=== PATIENT | female | born 1985 | race African-American/Black ===

== ENCOUNTER 2017-10-12 22:03 | Emergency (ER) | payer MEDICAID ==
[~2017-10-12] VITALS: Ht 162.6 cm; Wt 65.0 kg
[2017-10-12 22:50] LABS: ALANINE AMINOTRANSFERASE 38 U/L (12-78); ALBUMIN 3.9 g/dL (3.4-5.0); ANION GAP 9 mmol/L (5-15); CALCIUM 8.8 mg/dL (8.5-10.1); CHLORIDE 108 mmol/L (98-107)
[2017-10-12 22:55] LABS: ALKALINE PHOSPHATASE 106 U/L (45-117); BILIRUBIN,TOTAL 0.4 mg/dL (0.2-1.0); TOTAL PROTEIN 8.3 g/dL (6.4-8.2); TROPONIN I < 0.015 ng/mL (0.000-0.045)
[2017-10-12 22:57] LABS: MD YES; MEAN CORPUSCULAR HEMOGLOBIN 24.9 pg (27.0-34.8); MEAN CORPUSCULAR HGB CONC 32.5 g/dL (32.4-35.8); MEAN CORPUSCULAR VOLUME 76.6 fL (80-100); MEAN PLATELET VOLUME 9.8 fL (7.4-10.4); PLATELET COUNT 226 x10^3/uL (130-400); RED BLOOD COUNT 4.96 x10^6/uL (3.82-5.3); RED CELL DISTRIBUTION WIDTH 16.2 % (9.6-15.2)
[2017-10-12 23:00] LABS: BASOS#(MANUAL) 0.04 x10^3/uL (0-0.1); BASOS% (MANUAL) 1 % (0-1); LYMPH#(MANUAL) 1.52 x10^3/uL (1-3.4); LYMPHS% (MANUAL) 38 % (22-44); METAMYELOCYTES# (MANUAL) 0.04 x10^3/uL (0-0); METAMYELOCYTES% (MANUAL) 1 % (0-1); MONOS#(MANUAL) 0.12 x10^3/uL (0.3-2.7); MONOS% (MANUAL) 3 % (2-9); SEG#(MANUAL) 2.28 x10^3/uL (1.8-6.8); SEGS% (MANUAL) 57 % (42-75); THYROID STIMULATING HORMONE 0.428 mIU/L (0.358-3.740)
[2017-10-12 23:01] LABS: ANISOCYTOSIS 1+; HYPOCHROMIA 1+; POLYCHROMASIA 1+
[2017-10-12 23:02] LABS: <PLATELET ESTIMATE> ADEQUATE; LARGE PLATELETS 1+
[2017-10-12 23:11] VITALS: BP 116/68
== END 2017-10-13 00:18 | disposition home or self-care (01) ==
LOC: ED 22:50
DX: R00.2 Palpitations (principal); F32.0 Major depressive disorder, single episode, mild; F17.200 Nicotine dependence, unspecified, uncomplicated; I48.91 Unspecified atrial fibrillation; I25.2 Old myocardial infarction
CPT/HCPCS: 36415; 71045; 80053; 84443; 84484; 84703; 85025; 93005; 99285

== ENCOUNTER 2017-10-13 01:36 | Emergency (ER) | payer MEDICAID ==
[~2017-10-13] VITALS: Ht 165.1 cm; Wt 88.6 kg
[2017-10-13 03:04] LABS: HCG UR SG 1.037 (1.003-1.030)
[2017-10-13 03:16] LABS: AMPHETAMINE SCREEN, URINE Negative (Negative); BARBITURATE SCREEN, URINE Negative (Negative); BENZODIAZEPINE SCREEN, URINE Negative (Negative); CANNABINOID SCREEN, URINE Positive (Negative); COCAINE SCREEN, URINE Negative (Negative); METHADONE SCREEN, URINE Negative (Negative); OPIATE SCREEN, URINE Negative (Negative)
[2017-10-13 03:27] LABS: SALICYLATE LEVEL 5.1 mg/dL (2.8-20.0)
[2017-10-13 03:32] LABS: ACETAMINOPHEN < 2 mcg/mL (10-30)
[2017-10-13 04:52] VITALS: BP 121/74
== END 2017-10-13 04:56 | disposition home or self-care (01) ==
LOC: ED 02:43
DX: F20.9 Schizophrenia, unspecified (principal); F32.9 Major depressive disorder, single episode, unspecified; Z79.899 Other long term (current) drug therapy
CPT/HCPCS: 36415; 80307; 80329; 81025; 99284; G0480

== ENCOUNTER 2017-10-19 21:19 | Observation (INO) | payer MEDICAID ==
[~2017-10-19] VITALS: Ht 165.1 cm; Wt 95.5 kg
[2017-10-19 22:00] LABS: BASOPHILS # (AUTO) 0.01 x10^3/uL (0-0.1); BASOPHILS % (AUTO) 0 % (0-1); EOSINOPHILS % (AUTO) 0 % (1-7); LYMPHOCYTES # (AUTO) 0.99 x10^3/uL (1-3.4); LYMPHOCYTES % (AUTO) 23 % (22-44); MD NO; MEAN CORPUSCULAR HGB CONC 33.4 g/dL (32.4-35.8); MEAN CORPUSCULAR VOLUME 74.9 fL (80-100); MEAN PLATELET VOLUME 10.4 fL (7.4-10.4); MONOCYTES # (AUTO) 0.52 x10^3/uL (0.2-0.8); MONOCYTES % (AUTO) 12 % (2-9); NEUTROPHILS # (AUTO) 2.86 x10^3/uL (1.8-6.8); NEUTROPHILS % (AUTO) 65 % (42-75); PLATELET COUNT 196 x10^3/uL (130-400); RED BLOOD COUNT 5.49 x10^6/uL (3.82-5.3); RED CELL DISTRIBUTION WIDTH 16.5 % (9.6-15.2)
[2017-10-19] MEDS ORDERED: ONDANSETRON ODT 4 MG PO ONE (22:00)
[2017-10-19] MEDS ORDERED: IBUPROFEN 200 MG TABLET PO ONE (22:00)
[2017-10-19] MEDS ORDERED: IBUPROFEN 200 MG TABLET ONE (22:03)
[2017-10-19] MEDS ORDERED: ONDANSETRON ODT 4 MG ONE (22:03)
[2017-10-19 22:11] LABS: ALANINE AMINOTRANSFERASE 45 U/L (12-78); ANION GAP 10 mmol/L (5-15); CALCIUM 8.8 mg/dL (8.5-10.1); CHLORIDE 105 mmol/L (98-107); CREATININE 1.16 mg/dL (0.55-1.02); SALICYLATE LEVEL 4.9 mg/dL (2.8-20.0)
[2017-10-19 22:16] LABS: ACETAMINOPHEN 15 mcg/mL (10-30); ALKALINE PHOSPHATASE 117 U/L (45-117); BILIRUBIN,TOTAL 0.5 mg/dL (0.2-1.0); TOTAL PROTEIN 9.2 g/dL (6.4-8.2)
[2017-10-19 22:58] LABS: AMPHETAMINE SCREEN, URINE Negative (Negative); BARBITURATE SCREEN, URINE Negative (Negative); BENZODIAZEPINE SCREEN, URINE Negative (Negative); CANNABINOID SCREEN, URINE Positive (Negative); COCAINE SCREEN, URINE Negative (Negative); METHADONE SCREEN, URINE Negative (Negative); OPIATE SCREEN, URINE Negative (Negative)
[2017-10-20] MEDS ORDERED: POLYETHYLENE GLYCOL 17 GM PACKET PO PRN (05:00)
[2017-10-20] MEDS ORDERED: ONDANSETRON ODT 4 MG PO PRN (05:00)
[2017-10-20] MEDS ORDERED: QUETIAPINE 100MG TABLET ONE ×2 (09:32→22:05)
[2017-10-20] MEDS: QUETIAPINE 100MG TABLET PO SCH ×2 (09:35→21:00)
[2017-10-20] MEDS ORDERED: ACETAMINOPHEN 325 MG TABLET ONE (12:48)
[2017-10-20] MEDS: ACETAMINOPHEN 325 MG TABLET PO PRN (13:01)
[2017-10-20] MEDS ORDERED: ZIPRASIDONE 20 MG INJ IM ONE ×2 (19:48→20:00)
[2017-10-21] MEDS ORDERED: QUETIAPINE 100MG TABLET ONE ×2 (09:51→23:17)
[2017-10-21] MEDS: QUETIAPINE 100MG TABLET PO SCH ×2 (10:04→23:10)
[2017-10-21] MEDS ORDERED: ACETAMINOPHEN 325 MG TABLET ONE (16:53)
[2017-10-21] MEDS: ACETAMINOPHEN 325 MG TABLET PO PRN (16:55)
[2017-10-22] MEDS ORDERED: QUETIAPINE 100MG TABLET ONE (07:57)
[2017-10-22] MEDS ORDERED: ACETAMINOPHEN 325 MG TABLET ONE (08:02)
[2017-10-22] MEDS: QUETIAPINE 100MG TABLET PO SCH ×2 (08:04→22:33)
[2017-10-22] MEDS: ACETAMINOPHEN 325 MG TABLET PO PRN (08:04)
[2017-10-22 22:24] VITALS: BP 112/65
[2017-10-22] MEDS ORDERED: QUET100T4 PO (23:30)
[2017-10-23 07:30] VITALS: BP 108/76
[2017-10-23] MEDS: QUETIAPINE 100MG TABLET PO SCH (08:59)
[2017-10-23] MEDS: ARIPIPRAZOLE 10 MG TABLET PO SCH (15:31)
[2017-10-23] MEDS: ASA/APAP/ CAFFEINE TABLET PO PRN (21:03)
[2017-10-24 07:30] VITALS: BP 112/58
[2017-10-24] MEDS: ARIPIPRAZOLE 10 MG TABLET PO SCH (09:04)
[2017-10-24] MEDS ORDERED: ZIPRASIDONE 20 MG INJ IM ONE ×2 (10:16→10:30)
[2017-10-24] MEDS ORDERED: HALOPERIDOL 5 MG/ML IM PRN (12:30)
[2017-10-24] MEDS ORDERED: HALOPERIDOL 5 MG TABLET PO PRN (12:30)
[2017-10-24] MEDS: LORazepam 1MG TABLET PO PRN (23:02)
[2017-10-24 23:03] VITALS: BP 110/67
[2017-10-24] MEDS: ASA/APAP/ CAFFEINE TABLET PO PRN (23:03)
[2017-10-25 07:17] VITALS: BP 122/80
[2017-10-25] MEDS: ARIPIPRAZOLE 10 MG TABLET PO SCH (08:04)
[2017-10-25] MEDS: LORazepam 1MG TABLET PO PRN (08:04)
[2017-10-25] MEDS: ASA/APAP/ CAFFEINE TABLET PO PRN (12:56)
[2017-10-25 20:43] VITALS: BP 121/81
[2017-10-26] MEDS: ASA/APAP/ CAFFEINE TABLET PO PRN (01:59)
[2017-10-26] MEDS: LORazepam 1MG TABLET PO PRN (02:41)
[2017-10-26 07:21] VITALS: BP 102/69
[2017-10-26] MEDS: ARIPIPRAZOLE 10 MG TABLET PO SCH (09:05)
== END 2017-10-26 17:45 | disposition home or self-care (01) ==
LOC: ED 21:55 → EDIP 10-20 00:04 → UNDOADMIN 10-20 00:04 → 3E 10-22 22:04
PROVIDERS: ADMIT Emergency Medicine; ATTEND Emergency Medicine
DX: R45.851 Suicidal ideations (principal); F25.9 Schizoaffective disorder, unspecified; F32.9 Major depressive disorder, single episode, unspecified; R44.3 Hallucinations, unspecified; F12.10 Cannabis abuse, uncomplicated; Z79.899 Other long term (current) drug therapy
CPT/HCPCS: 36415; 70450; 80053; 80307; 80329; 84703; 85025; 93005; 96372; 99285; G0378; J3486; Q0162; G0480